=== PATIENT | female | born 1945 | race Caucasian/White ===

== ENCOUNTER 2025-01-02 06:10 | Inpatient (IN) ==
--- NOTE | 2024-12-05 14:19 | PAT Medication Instructions ---
Medication Instructions Date of Service December 05, 2024 Home Medications Fish Oil 1 tab PO DAILY acetaminophen 500 mg capsule 500 mg PO Q6H PRN Pain aspirin 81 mg capsule 81 mg PO DAILY bisacodyl 1 tab PO QAM PRN Constipation cholecalciferol (vitamin D3) 25 mcg (1,000 unit) chewable tablet (Vitamin D3) 25 mcg PO DAILY ibuprofen 200 mg tablet 200 mg PO Q6H PRN Pain magnesium 1 tab PO UD ASK your surgeon for instructions ibuprofen 200 mg tablet 200 mg PO Q6H PRN Pain ASK your prescriber and surgeon aspirin 81 mg capsule 81 mg PO DAILY STOP taking 2 weeks before surgery Fish Oil 1 tab PO DAILY DO NOT take the morning of surgery bisacodyl 1 tab PO QAM PRN Constipation cholecalciferol (vitamin D3) 25 mcg (1,000 unit) chewable tablet (Vitamin D3) 25 mcg PO DAILY magnesium 1 tab PO UD Take morning of surgery With a small sip of water, OTHERWISE NOTHING TO EAT OR DRINK AFTER MIDNIGHT: acetaminophen 500 mg capsule 500 mg PO Q6H PRN Pain (if needed) Take evening before surgery acetaminophen 500 mg capsule 500 mg PO Q6H PRN Pain (if needed) Other Notes If you have any questions please call us at [phone] or [phone] or [phone] or [phone]
--- NOTE | 2024-12-13 14:26 | Anesthesiology Consultation ---
Date of Service December 13, 2024 Assessment & Plan (1) Encounter for pre-operative examination: - will request copy of surgeon ordered medical clearance, Mireya Dee. Chart Review Chart Review: Pending: Refer to Additional Notes / Consult section and Patient NOT seen in Pre Admission Testing History Surgery Operation Date: 01/02/25 10:05 Proposed Procedures p Corpectomy C4, Anterior Cervical Discectomy and Fusion C5-C6, Fusion C3-C6 Spinal Cord Monitoring - Vidal Blanc, Height/Weight Height: 5 ft 8 in Weight: 80 kg Allergies Allergy/AdvReac Type Severity Reaction Status Date / Time No Known Allergies Allergy Verified 12/05/24 13:04 Medications Home Medications Medication Instructions Recorded Confirmed Last Taken Fish Oil 1 tab PO DAILY 12/05/24 12/05/24 Unknown acetaminophen 500 mg capsule 500 mg PO Q6H PRN Pain 12/05/24 12/05/24 Unknown aspirin 81 mg capsule 81 mg PO DAILY 12/05/24 12/05/24 Unknown bisacodyl 1 tab PO QAM PRN Constipation 12/05/24 12/05/24 Unknown cholecalciferol (vitamin D3) 25 25 mcg PO DAILY 12/05/24 12/05/24 Unknown mcg (1,000 unit) chewable tablet (Vitamin D3) ibuprofen 200 mg tablet 200 mg PO Q6H PRN Pain 12/05/24 12/05/24 Unknown magnesium 1 tab PO UD 12/05/24 12/05/24 Unknown Past Medical History Medical History (Updated 12/14/24 @ 09:02 by Nuzhat Jaquez PA-C) CKD (chronic kidney disease), stage III 3a Constipation chronic Elevated BP without diagnosis of hypertension says pcp would like her to be on meds, none at this time Hiatal hernia History of anesthesia reaction was not given enough and was awake for , when 31 yrs old History of COVID-19 (2021) no hosp; resolved HLD (hyperlipidemia) borderline, no meds; says pcp would like her to be on meds Hx of Lyme disease ~2014 - treated - denies residual issues Leaky heart valve mild- told that at 66 yrs old during cardiac testing; no cardio and no recent echo Patient denies h/o stroke, seizures, heart attack, heart failure, blood clots/DVTs or blood transfusions. Exercise / Class Metabolic Activity II 4-5 Yardwork/Stairs/Walk up hill (denies chest discomfort or shortness of breath with one flight of stairs-walking up stairs slowly) Past Surgical History Surgical History (Updated 12/13/24 @ 14:22 by Nuzhat Jaquez PA-C) History of cholecystectomy Hx of section emergency, complication of peritonitis Hx of tonsillectomy Hx of tooth extraction all upper teeth Past Anesthesia History No Family Hx of Anesthesia Complications History of PONV No Hx of PONV and No Hx of Motion Sickness Social History Smoking Status: Former smoker Do You Dip or Chew Tobacco: No Smoking End Date: quit ~2022 Hx Alcohol Use: No Hx Substance Use: No substance use type: does not use Review of Systems Occasional snoring, denies witnessed apneas. Patient denies chest pain, shortness of breath, dyspnea on exertion, reflux, fe dania, chills, cough, wheezing, or palpitations. Physical Exam Vital Signs Vitals BP 154/102 right arm; after patient rested in room and did relaxation breathing BP on right arm was re-checked manually and was 152/98 (She states is often very anxious/stressed in clinical settings) P 100 TEMP 37.0 SP02 99% on RA RESP 18 Physical Patient resting comfortably in chair in no acute distress, alert and oriented, responding appropriately throughout visit Full cervical extension range of motion without pain TMD 3.5 finger breadths Mallampati Score 2 Dentition: edentulous, full upper dentures Lungs: normal respiratory effort. Good air movement, clear throughout to auscultation, no adventitious breath sounds Cardiac: regular rate and rhythm, no murmurs noted Carotid arteries: negative bruit bilat Lab Results Anesthesia Preop Results Results Anesthesia Widget: WBC 4.68 K/ul (4.8-10.8) L 12/13/24 Hgb 13.7 g/dl (12.0-16.0) 12/13/24 Hct 41.1 % (37.0-47.0) 12/13/24 Plt 189 K/uL (130-400) 12/13/24 Na 140 mmol/L (136-145) 12/13/24 K 3.6 mmol/L (3.5-5.1) 12/13/24 Cl 104 mmol/L (98-107) 12/13/24 CO2 26 mmol/L (21-32) 12/13/24 BUN 13 mg/dl (6-23) 12/13/24 Creat 0.77 mg/dl (0.6-1.2) 12/13/24 Glucose Level 89 mg/dl (70-99(Fasting)) 12/13/24 PT 10.3 Seconds (9.0-12.0) 12/13/24 PTT 27 Seconds (21-31) 12/13/24 INR 0.9 (0.9-1.1) 12/13/24 Urine Color Yellow 12/13/24 Urine Appearance Clear (Clear) 12/13/24 Urine pH 7.5 (4.5-7.5) 12/13/24 Urine Specific [place] 1.004 (1.000-1.030) 12/13/24 Urine Protein Negative (Negative) 12/13/24 Urine Glucose (UA) Negative (Negative) 12/13/24 Urine Ketones Negative (Negative) 12/13/24 Urine Blood Negative (Negative) 12/13/24 Urine Nitrite Negative (Negative) 12/13/24 Urine Bilirubin Negative (Negative) 12/13/24 Urine Urobilinogen Negative (Negative) 12/13/24 Urine Leukocyte Esterase Negative (Negative) 12/13/24 Blood Type O Positive 12/13/24 Antibody Screen NEGATIVE 12/13/24 Testing Electrocardiogram Date: 12/13/24 NSR, rate 84 bpm Low voltage QRS Chest X-Ray Date: 12/13/24 1. No focal consolidation, infiltrates, or granuloma noted. No acute cardiopulmonary abnormality identified. 2. Mild thoracic spondylosis. 3. Medium sized hiatus hernia.
[2025-01-02] MEDS: GABAPENTIN 300 MG CAP PO SCH (06:48)
[2025-01-02] MEDS: ACETAMINOPHEN 500 MG TAB PO SCH (06:48)
[2025-01-02] MEDS: LR 60ML/HR IV SCH (06:48)
[2025-01-02] MEDS: CeleBREX 200 MG CAP PO SCH (06:48)
[2025-01-02] MEDS: LR 15ML/HR IV SCH (06:58)
[2025-01-02] MEDS ORDERED: ROCURONIUM BROMIDE 10 MG/ML 5 ML VIAL IV ONE (07:02)
[2025-01-02] MEDS ORDERED: LIDOCAINE 2% 2 ML VIAL/AMP(20MG/ML) INFIL ONE (07:02)
[2025-01-02] MEDS ORDERED: GLYCOPYRROLATE 0.2 MG/ML VIAL ONE (07:02)
[2025-01-02] MEDS ORDERED: PROPOFOL IV EMULSION 10 MG/ML 20 ML VIAL IV ONE (07:02)
[2025-01-02] MEDS ORDERED: ONDANSETRON INJ 2 MG/ML 2 ML VIAL ONE (07:02)
[2025-01-02] MEDS ORDERED: DEXAMETHASONE SOD INJ 4 MG/ML VIAL ONE (07:02)
[2025-01-02] MEDS ORDERED: fentaNYL citrate PF 100 MCG/2 ML VIAL ONE ×2 (07:03→08:20)
[2025-01-02] MEDS ORDERED: MIDAZOLAM HCL 1 MG/ML 2ML VIAL ONE (07:03)
[2025-01-02] MEDS ORDERED: SUGAMMADEX SODIUM 200 MG/2 ML VIAL IV ONE (07:07)
--- NOTE | 2025-01-02 07:25 | History & Physical Bridge Note ---
Date of Service January 02, 2025 History & Physical Bridge Note I have examined the patient, reviewed the History & Physical and in the interval since the performance of the History & Physical I have noted the following changes of clinical significance: no changes noted
--- NOTE | 2025-01-02 07:26 | History & Physical Report ---
Date of Service January 02, 2025 Assessment & Plan (1) Cervical spondylosis with radiculopathy: Plan: Corpectomy C4 anterior cervical discectomy and fusion C5-C6 fusion see 3 to C6. History of Present Illness Chief Complaint: Neck and arm pain Primary Care Provider: Mireya Dee PA-C This is a 71-year-old female presents chronic persistent neck and arm pain a failed course of nonoperative care she is here for surgical invention. Allergies Allergy/AdvReac Type Severity Reaction Status Date / Time No Known Allergies Allergy Verified 01/02/25 06:33 Home Medications Medication Instructions Recorded Confirmed Type Fish Oil 1 tab PO DAILY 12/05/24 01/02/25 History acetaminophen 500 mg capsule 500 mg PO Q6H PRN Pain 12/05/24 01/02/25 History aspirin 81 mg capsule 81 mg PO DAILY 12/05/24 01/02/25 History bisacodyl 1 tab PO QAM PRN Constipation 12/05/24 01/02/25 History cholecalciferol (vitamin D3) 25 25 mcg PO DAILY 12/05/24 01/02/25 History mcg (1,000 unit) chewable tablet (Vitamin D3) ibuprofen 200 mg tablet 200 mg PO Q6H PRN Pain 12/05/24 01/02/25 History magnesium 1 tab PO UD 12/05/24 01/02/25 History Past Med/Surg History Problem List (Updated 01/02/25 @ 07:25 by Vidal Blanc DO) Cervical spondylosis with radiculopathy Encounter for pre-operative examination Medical History (Updated 01/02/25 @ 07:25 by Vidal Blanc DO) Leaky heart valve mild- told that at 66 yrs old during cardiac testing; no cardio and no recent echo Hx of Lyme disease ~2014 - treated - denies residual issues Hiatal hernia Constipation chronic CKD (chronic kidney disease), stage III 3a Elevated BP without diagnosis of hypertension says pcp would like her to be on meds, none at this time HLD (hyperlipidemia) borderline, no meds; says pcp would like her to be on meds History of COVID-19 (2021) no hosp; resolved History of anesthesia reaction was not given enough and was awake for , when 31 yrs old Surgical History Hx of tonsillectomy Hx of tooth extraction all upper teeth Hx of section emergency, complication of peritonitis History of cholecystectomy Social History Smoking Status: Former smoker Tobacco Type: Cigarettes Smoking End Date: quit ~2022; Second Hand Exposure: No; Do You Dip or Chew Tobacco: No; Tobacco Cessation Education Requested by Patient: No Hx Alcohol Use: No Hx Substance Use: No Preferred Language: Maori Communication Ability: Effective Protective Signal Repairer Required: No Beliefs That Will Affect Care: None Current Living Situation: Spouse Other Information That Helps Us Care for You: No Feels Safe at Home: Yes Safety Concerns: Feels Safe At This Time Assistive Devices: Denture - Upper and Glasses Assistive Devices Comment: reading glasses Physical Exam Physical Exam: Patient is alert and oriented Heart regular rhythm Lungs clear Results & Data Results & Data Vital Signs (Past 12 Hours) Vital Signs Temp Pulse Resp BP Pulse Ox O2 Del Method 01/02/25 06:38 36.7 C 101 H 20 173/101 H 98 Room Air
[2025-01-02] MEDS ORDERED: ATROPINE SULFATE 0.1 MG/ML 10ML SYR IV PRN (07:29)
[2025-01-02] MEDS ORDERED: fentaNYL citrate PF 100 MCG/2 ML VIAL IV PRN (07:29)
[2025-01-02] MEDS ORDERED: ePHEDrine sulfate 50 MG/ML AMP IV PRN (07:29)
[2025-01-02] MEDS ORDERED: ONDANSETRON INJ 2 MG/ML 2 ML VIAL IV PRN ×2 (07:29→11:04)
[2025-01-02] MEDS: ceFAZolin 2000MG 2,000 MG/15 ML SYR IV SCH ×2 (07:38→15:55)
[2025-01-02] MEDS: ceFAZolin 330 MG/ML 1 GM VIAL ONE (09:12)
--- NOTE | 2025-01-02 09:18 | Operative Report ---
Post Operative Report Pre & Post Diagnosis Operation Date: 01/02/25 07:45 Pre-Op Diagnosis: #1 cervical spinal stenosis with myeloradiculopathy #2 cervical spondylosis with radiculopathy Post-Op Diagnosis: Same I identified the patient and participated in the time-out.: Yes Procedure Operation Date: 01/02/25 07:45 Actual Procedures #1 anterior cervical corpectomy with bilateral foraminotomies C4. #2 anterior cervical discectomy with bilateral foraminotomies C5-C6. #3 anterior cervical arthrodesis C3-C5 and C5-C6. #4 placement of Spira 23 mm cage C3 to see 5 and 8 mm cage C5-C6. #5 placement locally harvested morselized autograft combined with os designed in the interbody cages. #6 application of K2 and plate and screws from C3-C6. Surgeon Vidal Blanc, Mechanical Service Technician Felicitas Clancy Estimated Blood Loss 10 Findings Consistent with Post-Op Diagnosis Specimens None Indications This is a 79-year-old female who presents publish diagnosis. She has severe myelopathic symptoms and is here for surgical invention. Description of Procedure Patient met with identified informed consent obtained. Patient was then taken to the operative suite underwent the patient placed in spine position ingestible head Morris head ordered. All bony prominences well-padded eyes inspected to ensure no external pressure placed upon them. This point the anterior cervical spine was prepped and draped in normal sterile fashion. With the assistance of fluoroscopy notified the see 4 5 displacement transverse incision was placed along the right anterior aspect the cervical spine overlying the region. Blunt dissection with assistance of bipolar cautery performed down to and exposing the anterior cervical spine from C3 3 to C6. Self-retaining retractors placed. Informed complete discectomy of C3-C4 out to the uncovertebral joints bilaterally followed by complete discectomy out to the uncovertebral joints of the C4-C5. And then placed [place] distracting pins in C3 and C5 distract across the C4 vertebral body. Complete corpectomy C4 was then performed including removal of all posterior annular fibers longitudinal ligament bilateral foraminotomies performed addressing severe stenosis. Endplates burred to subcortical bleeding bone and a 23 mm Spira cage filled with locally harvested morselized autograft and os design bone graft tapped in position. Then proceeded to C5-C6. Again discectomy performed up to the uncovertebral joints bilaterally. [place] distraction pins again utilized. I removed all posterior and the fibers longitudinal ligament bilateral foraminotomies performed. Endplates burred to subcortical bleeding bone and an 8 mm spiral cage filled with os design bone graft and local autograft tapped into position. Distracting apparatus was removed. All anterior osteophytes burred to smooth cortical surface. K2 and plate and screws applied with the assistance of fluoroscopy. The incision was then kimi irrigated explored to ensure no damage to surrounding structures remaining bleeding. 10 round ARIANNA drain inserted. Incision then closed with 2 Vicryl in the fascia and 4 Monocryl for final skin closure. Steri-Strips and sterile dressing placed. Patient waken taken PACU stable condition. Please note spinal cord monitoring was utilized at the procedure no changes noted. Felicitas Clancy was present out the entire surgery involved the patient positioning complex portion of the surgery and final skin closure. I attest to the content of the Intraoperative Record and any orders documented therein. Any exceptions are noted below.
--- NOTE | 2025-01-02 09:59 | Fluoroscopy Report ---
FL cervical 2-3V CLINICAL HISTORY: HILARY C4, C5-C6 DISCECTOMY/FUSION, C3-C6 MONITORING COMPARISON STUDY: None FLUOROSCOPY TIME: 13 seconds FLUOROSCOPY IMAGES: 3 EXPOSURE DOSE: 1 mGy FINDINGS: Fluoroscopy was provided for cervical instrumented fusion. IMPRESSION: Intraoperative fluoroscopy. ACT 112: Negative or not required by law. Electronically signed by: Jose Luis Downing M.D. 01/02/2025 9:57 AM
--- NOTE | 2025-01-02 10:29 | Anesthesiology Progress Note ---
Date of Service January 02, 2025 Anesthesia Post Procedure Vital Signs Vital Signs: Temp Pulse Resp BP Pulse Ox O2 Del Method O2 Flow Rate 01/02/25 10:15 82 17 121/72 93 Room Air 01/02/25 10:05 83 17 123/72 93 Room Air 01/02/25 09:55 97.9 F 96 H 20 128/80 93 Room Air 0 01/02/25 09:45 86 20 144/84 H 100 Oxymask 4 01/02/25 09:35 94 H 17 137/83 100 Oxymask 8 01/02/25 09:25 96.8 F L 111 H 16 144/77 H 98 Oxymask 15 01/02/25 06:38 98.1 F 101 H 20 173/101 H 98 Room Air Pain Intensity Bilateral Hand: Pain Intensity: 4 Transfer of Care Handoff Completed per policy Notes Mental Status: alert / awake / arousable and participated in evaluation Patient Amnestic to Procedure: Yes Nausea / Vomiting: adequately controlled Pain: adequately controlled Airway Patency, RR, SpO2: stable & adequate BP & HR: stable & adequate Hydration State: stable & adequate Anesthetic Complications: no major complications apparent and Pt Satisfied with anesthetic care
[2025-01-02] MEDS ORDERED: LORazepam 2 MG/1 ML VIAL IV PRN (11:04)
[2025-01-02] MEDS ORDERED: HYDROmorphone INJ 0.5 MG/0.5 ML SYR IV PRN (11:04)
[2025-01-02] MEDS ORDERED: RACEPINEPHRINE 2.25% NEBU SOLN 0.5 ML VIAL INH PRN (11:04)
[2025-01-02] MEDS ORDERED: FAMOTIDINE 20 MG TAB PO PRN (11:04)
[2025-01-02] MEDS ORDERED: oxyCODONE HCL IR 5 MG TAB (IMMEDIATE RELEASE) PO PRN (11:04)
[2025-01-02] MEDS ORDERED: MAGNESIUM HYDROXIDE SUSP 30 ML UDC PO PRN (11:04)
[2025-01-02] MEDS ORDERED: traMADol HCL 50 MG TABLET PO PRN (11:04)
[2025-01-02] MEDS ORDERED: NON-FORMULARY MEDICATION (Magnesium 1 TAB) PO SCH (11:04)
[2025-01-02] MEDS ORDERED: hydrOXYzine HCl 25 MG TAB PO PRN (11:04)
[2025-01-02] MEDS ORDERED: dexAMETHasone 8 MG in SYRINGE 0 ML IV PRN (11:04)
[2025-01-02] MEDS ORDERED: HYDROmorphone INJ 1 MG/ML SYRINGE IV PRN (11:04)
[2025-01-02] MEDS ORDERED: DO NOT ADMINISTER PNEUMOCOCCAL VACCINE PRN (11:04)
[2025-01-02] MEDS ORDERED: bisacodyL 10 MG SUPP PR PRN (11:04)
[2025-01-02] MEDS ORDERED: SOD PHOSPHATE/SOD BIPHOSPHATE ENEMA 132 ML BTL PR PRN (11:04)
[2025-01-02] MEDS ORDERED: PROMETHAZINE 12.5 MG/50.5 ML BAG IV PRN (11:04)
[2025-01-02] MEDS ORDERED: METOCLOPRAMIDE HCL INJ 5 MG/ML 2 ML VIAL IV PRN (11:04)
[2025-01-02] MEDS ORDERED: ACETAMINOPHEN 1,000 MG/100 ML VIAL IV PRN (11:04)
[2025-01-02] MEDS ORDERED: LORazepam 0.5 MG TAB PO PRN (11:04)
[2025-01-02] MEDS ORDERED: NALOXONE HCL 0.4 MG/1 ML VIAL/CARP IV PRN (11:04)
[2025-01-02] MEDS ORDERED: diphenhydrAMINE Capsule 25 MG CAP PO PRN (11:04)
[2025-01-02] MEDS ORDERED: ONDANSETRON 4 MG OD TAB PO PRN (11:04)
[2025-01-02] MEDS ORDERED: DO NOT ADMINISTER FLU VACCINE PRN (11:04)
[2025-01-02] MEDS ORDERED: ALUMINUM/MAGNESIUM SUSP 30 ML UDC PO PRN (11:04)
--- NOTE | 2025-01-02 13:14 | Hospitalist Consultation ---
<Statement entered by Satya Russo, - 01/02/25 19:03> I have seen and examined the patient and have discussed the case with the advance practice provider. I have reviewed the advanced practitioner's documentation, and I agree with, and take responsibility for that plan of care. Patient seen and the medical floor. Postoperative. Pain is controlled. No chest pain or shortness of breath. Resting comfortably Cervical brace in place, drains in anterior neck Discussed plan of care as outlined below I spent a total of 12 minutes coordinating, documenting, and providing care for this patient excluding time spent by another provider/QHP. Date of Consultation January 02, 2025 Assessment & Plan (1) Cervical spondylosis with radiculopathy: (2) S/P spinal surgery: Laureen Nichols is a relatively healthy 79y/o F with PMHx significant for anemia and prior tobacco use whom is being seen in consultation for routine postoperative medical management after undergoing elective corpectomy C4, anterior cervical discectomy and fusion C5-C6 plus fusion C3-C6 performed by Dr. Blanc on 01/02/25 for treatment of cervical spondylosis with radiculopathy. POD #0 s/p corpectomy C4, anterior cervical discectomy and fusion C5-C6 plus fusion C3-C6 with Dr. lBanc on 01/02/25. EBL: 10mL & Pre-Op Hgb: 13.7 [as of 12/13/24] Per ortho for pain control, wound care, anticoagulation and activities. Continue incentive spirometry, PT/OT when appropriate as per primary team. Continue bowel regimen. Monitor H/H for acute blood loss anemia and transfuse blood products PRN. DVT Prophylaxis: SCDs/TEDs as per primary service. Continue OIL SPECULATOR ASA as per primary service. Code Status: FULL CODE PCP: Mireya Gamez PA-C [[facility]] Disposition: Admitted in med/surg - discharge planning as per primary service. Thank you for this consultation. We will follow the patient with you during their hospital stay. You can reach a member of the [facility] Hospitalist Team 09/05 via [employer]. Patient seen in collaboration with Dr. Russo. Please see addendum. I spent a total of 30 minutes coordinating, documenting, and providing care for this patient excluding time spent in the performance of separately billed services or time spent by another provider/QHP. This included personally reviewing all current laboratories and imaging studies, medical reconciliation, outpatient chart review and discussion with specialists. This chart was completed in part utilizing Speech Voice Recognition Software. Grammatical errors, random word insertions, pronoun errors, and incomplete sentences are an occasional consequence of this system due to software l imitations, ambient noise, and hardware issues. Any formal questions or concerns about the content, text, or information contained within the body of this dictation should be directly addressed to the provider for clarification. History of Present Illness Reason for Consultation: Routine Postoperative Medical Management Requesting Physician: Vidal Blanc DO Attending Physician: Vidal Blanc DO History of Present Illness Laureen Nichols is a relatively healthy 79y/o F with PMHx significant for anemia and prior tobacco use whom is being seen in consultation for routine postoperative medical management after undergoing elective corpectomy C4, anterior cervical discectomy and fusion C5-C6 plus fusion C3-C6 performed by Dr. Blanc on 01/02/25 for treatment of cervical spondylosis with radiculopathy. History obtained from the patient and associated chart review. Patient seen at bedside in room W351-2. Offers no complaints at this time. Mentions she is com fortable and that her pain is under control. Has cervical collar in place. ARIANNA x 1 intact and draining serosanguineous fluid. Patient is a retired RN. Has been up and out of bed postoperatively. Passing urine without issue. Allergies Allergy/AdvReac Type Severity Reaction Status Date / Time No Known Allergies Allergy Verified 01/02/25 06:33 Home Medications Medication Instructions Recorded Confirmed Type Fish Oil 1 tab PO DAILY 12/05/24 01/02/25 History acetaminophen 500 mg capsule 500 mg PO Q6H PRN Pain 12/05/24 01/02/25 History aspirin 81 mg capsule 81 mg PO DAILY 12/05/24 01/02/25 History bisacodyl 1 tab PO QAM PRN Constipation 12/05/24 01/02/25 History cholecalciferol (vitamin D3) 25 25 mcg PO DAILY 12/05/24 01/02/25 History mcg (1,000 unit) chewable tablet (Vitamin D3) ibuprofen 200 mg tablet 200 mg PO Q6H PRN Pain 12/05/24 01/02/25 History magnesium 1 tab PO UD 12/05/24 01/02/25 History oxycodone 5 mg tablet 5 mg PO Q6H PRN pain #20 tabs 01/02/25 Rx tramadol 50 mg tablet 50 mg PO Q6H PRN pain, moderate 01/02/25 Rx #30 tabs Patient History Medical History Leaky heart valve mild- told that at 66 yrs old during cardiac testing; no cardio and no recent echo Hx of Lyme disease ~2014 - treated - denies residual issues Hiatal hernia Constipation chronic CKD (chronic kidney disease), stage III 3a Elevated BP without diagnosis of hypertension says pcp would like her to be on meds, none at this time HLD (hyperlipidemia) borderline, no meds; says pcp would like her to be on meds History of COVID-19 (2021) no hosp; resolved History of anesthesia reaction was not given enough and was awake for , when 31 yrs old Surgical History Hx of tonsillectomy Hx of tooth extraction all upper teeth Hx of section emergency, complication of peritonitis History of cholecystectomy Social History Smoking Status: Former smoker Tobacco Type: Cigarettes Smoking End Date: quit ~2022; Second Hand Exposure: No; Do You Dip or Chew Tobacco: No; Tobacco Cessation Education Requested by Patient: No Hx Alcohol Use: No Hx Substance Use: No Preferred Language: Faroese Communication Ability: Effective Brake Lining Driller Required: No Beliefs That Will Affect Care: None Current Living Situation: Spouse Other Information That Helps Us Care for You: No Feels Safe at Home: Yes Safety Concerns: Feels Safe At This Time Assistive Devices: Denture - Upper and Glasses Assistive Devices Comment: reading glasses Review of Systems Review of Systems: At least ten systems reviewed and negative, except as noted in the HPI. Physical Exam Physical Exam: General: Elderly F, NAD, sitting up in bed, very pleasant. A+Ox3. Conversing appropriately. HEENT: Normocephalic. + Cervical collar in place. + ARIANNA drain x 1 with serosanguineous output. Oropharynx normal. Respiratory: Normal respiratory effort. Lungs clear to auscultation bilaterally. No accessory muscle use. Cardiovascular: Tachycardic rate. Regular rhythm. Normal peripheral pulses, no BLE edema. Abdomen/GI: Normoactive bowel sounds, soft. Nondistended. Nontender to palpation in all quadrants. Extremities/Musculoskeletal: No cyanosis or clubbing. Able to actively move all extremities. Results & Data Results & Data Vital Signs (Past 12 Hours) Vital Signs Temp Pulse Resp BP Pulse Ox O2 Del Method O2 Flow Rate 01/02/25 12:00 36.4 C L 88 15 139/89 95 Room Air 01/02/25 11:45 96 H 15 142/89 H 95 Room Air 01/02/25 11:15 88 13 107/66 92 Room Air 01/02/25 11:00 90 12 101/62 92 Room Air 01/02/25 10:45 89 12 105/68 93 Room Air 01/02/25 10:30 83 12 109/71 93 Room Air 01/02/25 10:15 82 17 121/72 93 Room Air 01/02/25 10:05 83 17 123/72 93 Room Air 01/02/25 09:55 36.6 C 96 H 20 128/80 93 Room Air 0 01/02/25 09:45 86 20 144/84 H 100 Oxymask 4 01/02/25 09:35 94 H 17 137/83 100 Oxymask 8 01/02/25 09:25 36.0 C L 111 H 16 144/77 H 98 Oxymask 15 01/02/25 06:38 36.7 C 101 H 20 173/101 H 98 Room Air Diagnostic Findings Cervical Spine X-Ray 01/02/25 00:00 FL cervical 2-3V CLINICAL HISTORY: HILARY C4, C5-C6 DISCECTOMY/FUSION, C3-C6 MONITORING COMPARISON STUDY: None FLUOROSCOPY TIME: 13 seconds FLUOROSCOPY IMAGES: 3 EXPOSURE DOSE: 1 mGy FINDINGS: Fluoroscopy was provided for cervical instrumented fusion. IMPRESSION: Intraoperative fluoroscopy. ACT 112: Negative or not required by law. Electronically signed by: Jose Luis Downing M.D. 01/02/2025 9:57 AM Medications Administered Acetaminophen (Acetaminophen 500 Mg Tab) 1,000 mg PO PREOP FRANKIE Stop: 01/02/25 18:00 Last Admin: 01/02/25 06:48 Dose: 1,000 mg Documented By: JASWINDER Celecoxib (Celebrex 200 Mg Cap) 200 mg PO PREOP FRANKIE Stop: 01/02/25 18:00 Last Admin: 01/02/25 06:48 Dose: 200 mg Documented By: JASWINDER Gabapentin (Gabapentin 300 Mg Cap) 300 mg PO PREOP FRANKIE Stop: 01/02/25 18:00 Last Admin: 01/02/25 06:48 Dose: 300 mg Documented By: JASWINDER Lactated Ringer's (Lr) 1,000 mls @ 15 mls/hr IV .Q24H FRANKIE Stop: 01/03/25 05:59 Last Infusion: 01/02/25 07:41 Dose: Infused Documented By: Admin: 01/02/25 06:58 Dose: 15 mls/hr Documented By: JASWINDER Lactated Ringer's (Lr) 1,000 mls @ 60 mls/hr IV .[id number] FRANKIE Stop: 01/02/25 22:39 Last Admin: 01/02/25 06:48 Dose: Not Given Documented By: JASWINDER Cefazolin Sodium (Ancef 2000mg) 2,000 mg in 15 mls @ 3.75 mls/min IV PREOP FRANKIE; Protocol Stop: 01/02/25 18:00 Last Admin: 01/02/25 07:38 Dose: 3.75 mls/min Documented By: [id number] Discontinued Medications Cefazolin Sodium (Cefazolin 330 Mg/Ml 1 Gm Vial) Confirm Administered Dose 990 mg .ROUTE .STK-MED ONE Stop: 01/02/25 07:18 Last Admin: 01/02/25 09:12 Dose: 200 mg Documented By: TARA
[2025-01-02] MEDS: dexAMETHasone 6 MG in SYRINGE 0 ML IV SCH (15:55)
[2025-01-02] MEDS: SENNA 8.6 MG TAB PO ONE (19:43)
[2025-01-02] MEDS: DOCUSATE SODIUM/SENNA 50/8.6MG TAB PO SCH (19:44)
[2025-01-03] MEDS: POLYETHYLENE (MIRALAX) 17 GM PACK PO SCH (06:07)
[2025-01-03 07:22] LABS: Hematocrit (blood only) 37.2 % (37.0-47.0); Hemoglobin 12.3 g/dl (12.0-16.0); Mean Corpuscular Hemoglobin 30.3 pg (25.0-34.0); Mean Corpuscular Hgb Conc 33.1 g/dL (32.0-36.0); Mean Corpuscular Volume 91.6 fL (80.0-100.0); Mean Platelet Volume 9.7 fL (9.4-12.4); Platelet Count 172 K/uL (130-400); RDW Coefficient of Variation 13.4 % (11.5-14.5); RDW Standard Deviation 45.5 fL (36.4-46.3); Red Blood Count 4.06 M/uL (4.20-5.40); White Blood Count 6.31 K/ul (4.8-10.8)
[2025-01-03 07:48] LABS: BUN Creatinine Ratio 14.3 (10-20); Calcium 9.3 mg/dl (8.6-10.3); Creatinine Clr Calc Pharmacy 66.1 ml/min; Potassium 4.2 mmol/L (3.5-5.1)
--- NOTE | 2025-01-03 07:53 | Hospitalist Progress Note ---
Date of Service January 03, 2025 Assessment & Plan (1) Cervical spondylosis with radiculopathy: (2) S/P spinal surgery: Plan: Laureen Nichols is a relatively healthy 79y/o F with PMHx significant for anemia and prior tobacco use whom is being seen in consultation for routine postoperative medical management after undergoing elective corpectomy C4, anterior cervical discectomy and fusion C5-C6 plus fusion C3-C6 performed by Dr. Blanc on 01/02/25 for treatment of cervical spondylosis with radiculopathy. POD #1 s/p corpectomy C4, anterior cervical discectomy and fusion C5-C6 plus fusion C3-C6 with Dr. Blanc on 01/02/25. EBL: 10mL & Pre-Op Hgb: 13.7; today 12.3 Will trend in AM Per ortho for pain control, wound care, anticoagulation and activities. Continue incentive spirometry PT/OT when appropriate as per primary team. Continue bowel regimen. DVT Prophylaxis: SCDs/TEDs as per primary service. Continue previously prescribed ASA. Code Status: FULL CODE PCP: Mireya Gamez PA-C Disposition: Admitted in med/surg - discharge planning as per primary service. I spent a total of 48 minutes coordinating, documenting, and providing care for this patient excluding time spent in the performance of separately billed ser vices or time spent by another provider/QHP. This included personally reviewing all current laboratories and imaging studies, medical reconciliation, outpatient chart review and discussion with specialists. Admission and Anticipated Discharge Date Admission Date: January 02, 2025 Supervising Physician Co-Signing Physician Notes Patient is seen and examined at bedside. Doing well postoperatively. Denies any dysphagia, dyspnea, chest pain, nausea, vomiting, abdominal pain. No significant pain at surgical site. On exam patient is moderately built and nourished, no apparent distress, normocephalic atraumatic, EOMI, neck: Surgical site in dressing, drain, neck collar, normal breath sounds, clear to auscultation, S1-S2, no murmur, no pedal edema, abdomen soft, nontender, normal bowel sounds, alert, awake, oriented, grossly no focal deficits. Patient is currently being managed for postoperative state-- cervical spondylosis with radiculopathy s/p ACDF by Dr. Blanc. Pain control, wound care, activity per primary team.Noted hyperglycemia. Check HbA1c. Continue home medications as able. I personally interviewed and examined the patient at bedside. I have reviewed the advanced practitioner's documentation on the date of service referr ed in note and agree with plan. Patient's care is coordinated with Gayle CANTRELL. Please refer to the documentation above for details of patient's presentation and for discussion of other issues. I spent a total [id number] coordinating, documenting, and providing care for this patient excluding time spent in the performance of separately billed services or time spent by another provider/QHP. Subjective Pt sitting upright in her hospital bed in no apparent distress. She reports bilateral neuropathy in her hands, but improved from pre op. Pt denies BLACK, dizziness, chest pain, palpitations, SOB, N/V/D. See A/P for further details. Review of Systems Review of Systems: Neuro: (-) Falls, trauma, slurred speech (+) neuropathy HEENT: (-) BLACK, dizziness, dysphagia, visual or auditory changes CV: (-) CP, palpitations, swelling Resp: (-) SOB GI: (-) appetite changes, N/V/D, bowel changes : (-) urinary changes Skin: (-) rashes Psych: (-) anxiety, depression Physical Exam Physical Exam: Neuro: AAOx4, PERRLA, no aphagia, memory changes, CNII-XII grossly intact HEENT: head normocephalic, moist mucus membranes anterior cervical collar in place. CV: S1/S2, (-) M/G/R, (-) edema, cap refill < 3 seconds anterior ARIANNA drain with filipe red blood output Resp: Lungs CTA in all pierson. On RA GI: Abdomen S/NT/ND, Ax4 bowel sounds, (-) CVA tenderness Musculoskeletal: 5/5 B/L UE strength, 5/5 B/L LE strength. No gait disturbance Skin: (-) rashes , (-) erythema. Psych: euthymic mood Results & Data Results & Data Vital Signs (Past 12 Hours) Vital Signs Temp Pulse Resp BP Pulse Ox O2 Del Method 01/03/25 07:19 36.5 C 89 18 149/76 H 95 Room Air 01/03/25 05:19 36.7 C 77 18 116/76 95 Room Air 01/03/25 03:02 36.8 C 89 15 133/74 96 Room Air 01/03/25 02:50 86 18 95 Room Air 01/03/25 01:16 36.7 C 84 18 129/83 95 Room Air 01/02/25 23:30 85 18 96 Room Air 01/02/25 23:15 36.8 C 86 16 99/70 L 96 Room Air 01/02/25 21:15 36.8 C 91 H 16 96/69 L 96 Room Air Laboratory Results Short CBC 01/03/25 Range/Units 06:28 WBC 6.31 (4.8-10.8) K/ul Hgb 12.3 (12.0-16.0) g/dl Hct 37.2 (37.0-47.0) % Plt Count 172 (130-400) K/uL BMP 01/03/25 06:28 Sodium 140 Potassium 4.2 Chloride 107 Carbon Dioxide 24 BUN 11 Creatinine 0.77 Glucose 178 H Calcium 9.3
[2025-01-03] MEDS: ASPIRIN 81 MG ECTAB PO SCH (08:07)
[2025-01-03] MEDS: CHOLECALCIFEROL 25 MCG (1000 UNITS) TAB PO SCH (08:07)
--- NOTE | 2025-01-03 08:31 | Orthopedic Progress Note ---
Date of Service January 03, 2025 Assessment & Plan (1) Cervical spondylosis with radiculopathy: Plan: At this time we will going to initiate a course of physical therapy today. Will maintain the ARIANNA drain another 24 hours anticipate discharge home tomorrow. Admission and Anticipated Discharge Date Admission Date: January 02, 2025 Subjective Patient's not struggling with any neck pain. Arm symptoms are stable. She is swallowing well. No hoarseness. Physical Exam Physical Exam: On exam the drain is functioning. She has no evidence of swelling in the neck. Has reasonable strength testing of extremities. Results & Data Vital Signs (Past 12 Hours) Vital Signs Temp Pulse Resp BP Pulse Ox O2 Del Method 01/03/25 08:00 69 14 97 Room Air 01/03/25 07:19 36.5 C 89 18 149/76 H 95 Room Air 01/03/25 05:19 36.7 C 77 18 116/76 95 Room Air 01/03/25 03:02 36.8 C 89 15 133/74 96 Room Air 01/03/25 02:50 86 18 95 Room Air 01/03/25 01:16 36.7 C 84 18 129/83 95 Room Air 01/02/25 23:30 85 18 96 Room Air 01/02/25 23:15 36.8 C 86 16 99/70 L 96 Room Air 01/02/25 21:15 36.8 C 91 H 16 96/69 L 96 Room Air
[2025-01-03] MEDS: ACETAMINOPHEN 500 MG TAB PO PRN (20:30)
--- NOTE | 2025-01-04 07:26 | Hospitalist Progress Note ---
Date of Service January 04, 2025 Assessment & Plan (1) Cervical spondylosis with radiculopathy: (2) S/P spinal surgery: Plan: Laureen Nichols is a relatively healthy 79y/o F with PMHx significant for anemia and prior tobacco use whom is being seen in consultation for routine postoperative medical management after undergoing elective corpectomy C4, anterior cervical discectomy and fusion C5-C6 plus fusion C3-C6 performed [address] Dr[address] Blanc on 01/02/25 for treatment of cervical spondylosis with radiculopathy. POD #2 s/p corpectomy C4, anterior cervical discectomy and fusion C5-C6 plus fusion C3-C6 with Dr. Blanc on 01/02/25. EBL: 10mL & Pre-Op Hgb: 13.7; today 12.9 Per ortho for pain control, wound care, anticoagulation and activities. Continue incentive spirometry PT/OT when appropriate as per primary team. Continue bowel regimen; BM yesterday evening Continuous pulse ox discontinued this morning; SpO2 95% on room air Discussed with Dr. Blanc; plan for DC today. Checked HA1c this AM: 5.1 DVT Prophylaxis: SCDs/TEDs as per primary service. Continue previously prescribed ASA. Code Status: FULL CODE PCP: Mireya Gamez PA-C Disposition: Admitted in med/surg - discharge planned for today after discussing with orthospine I spent a total of 58 minutes coordinating, documenting, and providing care for this patient excluding time spent in the performance of separately billed services or time spent by another provider/QHP. This included personally reviewing all current laboratories and imaging studies, medical reconciliation, outpatient chart review and discussion with specialists. Admission and Anticipated Discharge Date Admission Date: January 02, 2025 Supervising Physician Co-Signing Physician Notes Patient is seen and examined at bedside on day of discharge. No new complaints. Plan to be discharged home today. Denies any dysphagia, dyspnea, chest pain, nausea, vomiting, abdominal pain. No significant pain at surgical site. On exam patient is moderately built and nourished, no apparent distress, normocephalic atraumatic, EOMI, neck: Surgical site in dressing, drain, neck collar, normal breath sounds, clear to auscultation, S1-S2, no murmur, no pedal edema, abdomen soft, nontender, normal bowel sounds, alert, awake, oriented, grossly no focal deficits. Patient is currently being managed for postoperative state-- cervical spondylosis with radiculopathy s/p ACDF by Dr. Blanc. Pain control, wound care, activity per primary team.HbA1c 5.1. Continue home medications as able. Continue incentive spirometry. I personally interviewed and examined the patient at bedside. I have reviewed the advanced practitioner's documentation on the date of service referred in note and agree with plan. Patient's care is coordinated with Gayle CANTRELL. Please refer to the documentation above for details of patient's presentation and for discussion of other issues. I spent a total [id number] coordinating, documenting, and providing care for this patient excluding time spent in the performance of separately billed services or time spent by another provider/QHP. Subjective Patient sitting upright in her bedside chair in no apparent distress. Denies fever, chills, chest pain, shortness of breath, nausea, vomiting, diarrhea. Denies neuropathy in bilateral hands; Discussed appropriate application of c- collar. Patient had BM last evening. Continuous pulse ox discontinued saturations 95% on room air. Complains of a sore throat but no dysphagia. See A/P for further details. Review of Systems Review of Systems: Neuro: (-) Falls, trauma, slurred speech HEENT: (-) BLACK, dizziness, dysphagia, visual or auditory changes CV: (-) CP, palpitations, swelling Resp: (-) SOB GI: (-) appetite changes, N/V/D, bowel changes : (-) urinary changes Skin: (-) rashes Psych: (-) anxiety, depression Physical Exam Physical Exam: Neuro: AAOx4, PERRLA, no aphagia, memory changes, CNII-XII grossly intact HEENT: head normocephalic, moist mucus membranes anterior cervical collar in place. CV: S1/S2, (-) M/G/R, (-) edema, cap refill < 3 seconds anterior ARIANNA drain with filipe red blood output Resp: Lungs CTA in all pierson. On RA GI: Abdomen S/NT/ND, Ax4 bowel sounds, (-) CVA tenderness Musculoskeletal: 5/5 B/L UE strength, 5/5 B/L LE strength. No gait disturbance Skin: (-) rashes , (-) erythema. Psych: euthymic mood Results & Data Results & Data Vital Signs (Past 12 Hours) Vital Signs Temp Pulse Pulse Resp BP Pulse Ox O2 Del Method 01/04/25 07:09 36.6 C 76 16 128/82 95 Room Air 01/04/25 04:45 36.7 C 81 18 146/92 H 94 Room Air 01/03/25 19:45 36.6 C 89 16 113/73 95 Room Air Laboratory Results Short CBC 01/04/25 Range/Units 07:40 WBC 8.90 (4.8-10.8) K/ul Hgb 12.9 (12.0-16.0) g/dl Hct 39.7 (37.0-47.0) % Plt Count 198 (130-400) K/uL BMP 01/04/25 07:40 Sodium 142 Potassium 3.6 Chloride 107 Carbon Dioxide 27 BUN 15 Creatinine 0.82 Glucose 88 Calcium 9.8
[2025-01-04 09:08] LABS: Hematocrit (blood only) 39.7 % (37.0-47.0); Hemoglobin 12.9 g/dl (12.0-16.0); Mean Corpuscular Hgb Conc 32.5 g/dL (32.0-36.0); Mean Corpuscular Volume 92.3 fL (80.0-100.0); Mean Platelet Volume 9.8 fL (9.4-12.4); Platelet Count 198 K/uL (130-400); RDW Coefficient of Variation 13.8 % (11.5-14.5); RDW Standard Deviation 46.6 fL (36.4-46.3)
[2025-01-04 09:21] LABS: BUN Creatinine Ratio 18.3 (10-20); Calcium 9.8 mg/dl (8.6-10.3); Creatinine Clr Calc Pharmacy 62.1 ml/min; Magnesium 2.1 mg/dl (1.7-2.4); Potassium 3.6 mmol/L (3.5-5.1)
[2025-01-04 09:22] LABS: Estimated Average Glucose 100 mg/dl; Hemoglobin A1C 5.1 % (4.5-5.6)
--- NOTE | 2025-01-04 10:02 | Discharge Summary ---
Date of Service January 04, 2025 Admission HPI Per Admitting Provider This is a 71-year-old female presents chronic persistent neck and arm pain a failed course of nonoperative care she is here for surgical invention. Principal Diagnosis Cervical spinal stenosis with myeloradiculopathy Discharge Data Allergies Allergy/AdvReac Type Severity Reaction Status Date / Time No Known Allergies Allergy Verified 01/02/25 06:33 Consultations 01/02/25 11:04 Consult Hospitalist Routine Procedures Performed Operation Date: 01/02/25 07:45 Actual Procedures p Corpectomy C4, Anterior Cervical Discectomy and Fusion C5-C6, Fusion C3-C6 Spinal Cord Monitoring(Not Applicable) - Vidal Blanc DO Ordered Studies 01/02/25 [place] cervical 2-3V Routine Hospital Course (1) Cervical spondylosis with radiculopathy: Patient underwent anterior cervical decompression and fusion tolerates well was taken to orthopedic for postoperative. Postop day 1 she was swallowing well. No hoarseness. ARIANNA drain functioning. Postop day 2 she noted steady improvement. No swallowing issues no hoarseness. Excellent strength testing. ARIANNA drain decreasing. Simply discharged home. Discharge orders instructions from the chart for further review. Total Time Total Time Spent Total Time Spent (In Minutes): 20 minutes Discharge Plan Discharge Items Patient Disposition: Home - Self-Care Reason For Visit: Cervical Disc Disease, Cervical Cord Myelomalacia, Discharge Diagnosis: Cervical spinal stenosis with myeloradiculopathy Activity: As commented below Non-emergency contact: Primary Care Provider Call non-emergency contact if: you have any medication questions Follow-up/Referrals: Mireya Dee PA-C [Primary Care Provider] - Diet: Regular Addtl Attending Provider Instructions: ACTIVITY RECOMMENDATIONS: SELF CARE INSTRUCTIONS AFTER CERVICAL FUSIONS 1. No smoking. Smoking drastically decreases the chance of a solid fusion. 2. No bending, lifting more than 5 pounds, or twisting (roll like a log when turning in bed). 3. You may shower 3 days after surgery. Thoroughly dry wound. Do not soak in the tub. 4. Cervical collar: Must be worn at all times including sleeping. You may remove the brace only to bath, eat and if you are sitting in a recliner. 5. Please walk as much as you can for exercise. Gradually increase the distance that you walk as your endurance increases. 6. You may return to previous diet. SPECIAL CARE INSTRUCTIONS: VERY IMPORTANT TO READ AND REVIEW A. Do not take any anti-inflammatory medications (i.e. Indocin, Advil, Aspirin, Naprosyn, Aleve, Motrin, etc.) as these may inhibit the chance of a solid fusion. Tylenol is okay to take. B. Your surgical incision has been closed with a cosmetic suture under the skin that will dissolve in about 6 weeks. In 14 days, you can use a pair of clean scissors and cut the suture that is left outside of the skin at the ends of your incision. C. Complications are uncommon, but please contact us if you have any signs or symptoms of: 1. wound infection (fever higher than 102.5 degrees F, redness, separation of wound, drainage, or increasing pain from the incision) 2. blood clots in legs (pain, swelling, redness and warmth in legs) 3. urinary tract infection (fever higher than 102.5 degrees, burning upon urination or increased frequency of urination) 4. nerve problems (inability to walk on your toes or heels, numbness, loss of bowel or bladder control) 5. any other symptoms that concern you. D. Please call the office at if you have any concerns or questions about your operation or recovery. MANAGING PAIN AFTER SPINAL SURGERY 1. Narcotic medication is intended for short-term use and will be provided for surgical pain. Surgical pain usually lasts for a period of 4-6 weeks. Narcotic medication includes Percocet, Vicodin, Darvocet, Tylenol #3 or Lortab. 2. Longer-term pain is more appropriately treated with non-narcotic medication such as Tylenol ES. 3. Muscle spasm is not appropriately treated with narcotics. Muscle relaxers such as Soma, Flexeril or Skelaxin can be used along with Tylenol ES. 4. Remember that we all live with some "aches and pains". This is not unusual or uncommon after an injury or as we get older. 5. We will provide appropriate medication within the normal guidelines of their prescribed use. We will also be very cautious and aware of potential abuse and extended duration of patients' medication needs. 6. Please allow 2-3 days to process refills. Prescriptions will not be mailed but must be picked up at the office. FOLLOW UP VISIT: Keep your scheduled follow-up appointment. Any questions, please call the office at . Pending Studies at Discharge: No Stand-Alone Forms: My [facility], Smoking Cessation Medications and DC Order Prescriptions: New tramadol 50 mg tablet 50 mg PO Q6H PRN (Reason: pain, moderate) Qty: 30 0RF oxycodone 5 mg tablet 5 mg PO Q6H PRN (Reason: pain) Qty: 20 0RF Continued acetaminophen 500 mg Capsule 500 mg PO Q6H PRN (Reason: Pain) cholecalciferol (vitamin D3) [Vitamin D3] 25 mcg (1,000 unit) Tablet,Chewable 25 mcg PO DAILY aspirin 81 mg Capsule 81 mg PO DAILY Fish Oil 1 tab PO DAILY bisacodyl 1 tab PO QAM PRN (Reason: Constipation) magnesium 1 tab PO UD Rx Instructions: takes occasionally Discontinued ibuprofen 200 mg Tablet 200 mg PO Q6H PRN (Reason: Pain) Discharge Orders: Discharge Order (Routine); Ordered 01/04/25 Ordered By: Vidal Blanc Admission Data Admit Date/Time: 01/02/25 09:21 Attending Provider: Vidal Blanc Admit Provider: Vidal Blanc Primary Care Provider: Mireya Dee Other Providers: Marina Diza; Seb Merino
== END 2025-01-04 11:36 | disposition home or self-care (01) | DRG 430 ==
LOC: ASU 06:10 → 3W 09:21